=== PATIENT | female | born 1965 | race African-American/Black ===

== ENCOUNTER 2024-06-27 11:06 | Emergency (ER) | payer OTHER ==
[2024-06-27 12:15] VITALS: BP 143/84; PULSE 85; RESP 18; TEMP 98.4; BMI 48.0
[2024-06-27] MEDS ORDERED: KETOROLAC TROMETHAMINE 30 MG/1 ML VIAL ONE (12:56)
[2024-06-27] MEDS: KETOROLAC TROMETHAMINE 30 MG/1 ML VIAL IM ONE (13:14)
[2024-06-27] MEDS: ACETAMINOPHEN 1000 MG/100 ML BAG IVPB ONE (13:15)
[2024-06-27] MEDS ORDERED: SODIUM CHLORIDE 1,000 ML IV STA (13:44)
[2024-06-27 14:00] LABS: PH,URINE 5.5 (5.0-8.0); URINE APPEARANCE CLEAR; URINE BILIRUBIN NEGATIVE (NEGATIVE); URINE COLOR YELLOW; URINE GLUCOSE (UA) NEGATIVE (NEGATIVE); URINE KETONE NEGATIVE (NEGATIVE); URINE LEUK ESTERASE 1+ (NEGATIVE); URINE NITRITE NEGATIVE (NEGATIVE); URINE PROTEIN NEGATIVE (NEGATIVE); URINE UROBILINOGEN 0.2 mg/dL (0.2-1.0)
[2024-06-27 14:21] LABS: EPI CELLS 6.9 /uL (0-25.1); HYALINE CASTS 0 /uL (0-3.1); URINE BACTERIA 162.4 /uL (0-1359); URINE RBC 7.2 /uL (0-23.9); URINE WBC 24.2 /uL (0-25.8)
[2024-06-27 14:44] LABS: BASO % 0.9 % (0-2.0); EOS % 0.5 % (0-4.5); HEMATOCRIT 41.1 % (32.4-45.2); HEMOGLOBIN 13.5 GM/dL (10.7-15.3); LYMPH % 21.8 % (8-40); MCH 31.2 pg (25.7-33.7); MCHC 32.8 g/dl (32.0-36.0); MEAN CELL VOLUME 95.2 fl (80-96); MEAN PLT VOLUME 8.4 fl (7.5-11.1); MONO % 11.1 % (3.8-10.2); NEUT % 65.7 % (42.8-82.8); PLATELET COUNT 340 10^3/uL (134-434); RBC 4.32 M/mm3 (3.60-5.2); WHITE BLOOD COUNT 4.5 K/mm3 (4.0-10.0)
[2024-06-27 15:11] LABS: CALCIUM 9.7 mg/dL (8.5-10.1)
[2024-06-27 15:12] LABS: ALBUMIN 3.8 g/dl (3.4-5.0); BLOOD UREA NITROGEN 13.5 mg/dL (7-18)
[2024-06-27 15:15] LABS: CREATININE 0.7 mg/dL (0.55-1.3)
[2024-06-27 15:17] LABS: BILIRUBIN,TOTAL 1.3 mg/dL (0.2-1); TOT PROT 7.8 g/dl (6.4-8.2)
[2024-06-27] MEDS ORDERED: predniSONE 20 MG TABLET (UD) ONE (16:23)
[2024-06-27] MEDS: predniSONE 20 MG TABLET (UD) PO ONE (16:29)
[2024-06-27] MEDS: CEFUROXIME AXETIL 500 MG TABLET PO ONE (17:06)
== END 2024-06-27 17:39 | disposition home or self-care (01) ==
LOC: JER 11:06
PROC: 3E0133Z Introduction of Anti-inflammatory into Subcutaneous Tissue, Percutaneous Approach (ICD-10-PCS; principal; 2024-06-27)
DX: K65.4 Sclerosing mesenteritis (principal); R10.30 Lower abdominal pain, unspecified; R51.9 Headache, unspecified
CPT/HCPCS: 36415; 80053; 81003; 83735; 85025; 93005; 93010; 99284-25